=== PATIENT | male | born 1955 | race Caucasian/White ===

== ENCOUNTER 2018-11-23 16:36 | Inpatient (IN) ==
[2018-11-23] MEDS ORDERED: MEROPENEM 1,000 MG in SODIUM CHLORIDE 0.9% 100 ML IV ONE ×2 (17:14→18:00)
[2018-11-23] MEDS ORDERED: ONDANSETRON 4 MG/2 ML VIAL IV STA (17:28)
[2018-11-23] MEDS ORDERED: HYDROmorphone 2 MG/1 ML VIAL IV ONE (17:28)
[2018-11-23 17:39] LABS: Apearance,Urine CLEAR (Clear); Bacteria,Urine Occasional /HPF (Few); Bilirubin,Urine Negative (Negative); Blood, Urine Negative (Negative); Glucose,Urine (UA) Negative (Negative); Ketones,Urine Negative (Negative); Nitrite,Urine Negative (Negative); Protein,Urine Negative; RBC,Urine <1 /HPF (0-4); Urine Color Straw (Yellow); Urine Specific Gravity 1.009 (1.001-1.035); Urine Urobilinogen < 2.0 EU/DL (0.2-1.0); WBC,Urine 2 /HPF (0-6)
[2018-11-23 17:54] LABS: Basophils % 1.5 % (0.0-0.8); Eosinophils # 0.1 10*3/uL (0.0-0.87); Eosinophils % 3.1 % (0.00-10.9); Hemoglobin 10.5 GM/DL (14.0-18.0); Immature Granulocytes % 0.4 %; Immature Granulocytes Absolute 0.01 #; Lymphocytes # 1.1 10*3/uL (1.4-4.0); Lymphocytes % 40.9 % (21.2-54.2); Mean Corpuscular HGB Conc 33.9 GM/DL (32-36); Mean Corpuscular Volume 92.8 FL (87-102); Mean Platelet Volume 9.2 FL (9.6-12.0); Monocytes % 25.5 % (1.7-12.7); Neutrophils % 28.6 % (38.7-73.9); Platelet Count 233 T/CUMM (130-400); Red Blood Count 3.34 MC/CUMM (3.8-5.5); White Blood Count 2.6 T/CUMM (4-12)
[2018-11-23] MEDS ORDERED: MEROPENEM 1,000 MG VIAL IV ONE (17:58)
[2018-11-23 18:01] LABS: Bilirubin,Total 0.4 MG/DL (0.2-1.0); Osmolality,Calculated 262.5 MOS/KG (273-304); Total Protein 6.7 G/DL (6.4-8.3)
[2018-11-23 18:04] LABS: INR 0.9; PT Patient Result 10.2 SECS (9.6-12.2)
[2018-11-23 18:17] LABS: Eosinophils 4 % (0-10); Lymphocytes 44 % (20-55); Platelet Estimate Adequate; Segmented Neutrophils 32 % (50-85); Total Cells Counted 100
[2018-11-23 18:18] LABS: Atypical Lymphocytes 1+; Microcytosis Slight; Polychromasia Few
[2018-11-23] MEDS ORDERED: chlorproMAZINE 25 MG TABLET PO PRN (18:38)
[2018-11-23] MEDS ORDERED: chlorproMAZINE INJ 25 MG in SODIUM CHLORIDE 0.9% 100 ML IV PRN (18:38)
[2018-11-23] MEDS ORDERED: LOPERAMIDE 2 MG CAPSULE PO PRN ×2 (18:38)
[2018-11-23] MEDS ORDERED: MYLANTA/LIDO VISC 2:1 300 ML BOTTLE SWISH/SWAL PRN (18:38)
[2018-11-23] MEDS ORDERED: chlorproMAZINE INJ 50 MG in SODIUM CHLORIDE 0.9% 100 ML IV PRN (18:38)
[2018-11-23] MEDS ORDERED: MYLANTA/LIDO VISC 2:1 300 ML BOTTLE SWISH/SPIT PRN (18:38)
[2018-11-23] MEDS ORDERED: LACTULOSE 20 GM/30 ML UDCUP PO PRN (18:38)
[2018-11-23] MEDS ORDERED: BENZTROPINE 2 MG/2 ML AMP IV PRN (18:38)
[2018-11-23] MEDS ORDERED: MAGNESIUM HYDROXIDE SUSP 30 ML UDCUP PO PRN (18:38)
[2018-11-23] MEDS: LISINOPRIL/HCTZ 20-25 MG TABLET PO SCH (20:41)
[2018-11-23] MEDS: TEMAZEPAM 7.5 MG CAPSULE PO PRN (20:42)
[2018-11-23] MEDS: NEBIVOLOL 10 MG TABLET PO SCH (20:42)
[2018-11-23] MEDS: ENOXAPARIN 40 MG/0.4 ML SYRINGE SUBCUT SCH (20:45)
[2018-11-23] MEDS: SODIUM CHLORIDE 0.9% 1,000 ML IV SCH (20:58)
[2018-11-23] MEDS: traMADol 50 MG TABLET PO PRN (22:24)
[2018-11-23] MEDS: LORazepam 1 MG TABLET PO SCH (22:24)
[2018-11-23] MEDS: FILGRASTIM-SNDZ 300 MCG/0.5 ML SYRINGE SUBCUT SCH (22:28)
[2018-11-24] MEDS: ALPRAZolam 0.25 MG TABLET PO PRN ×2 (01:06→15:45)
[2018-11-24] MEDS: ONDANSETRON 4 MG/2 ML VIAL IV PRN ×2 (01:10→08:50)
[2018-11-24] MEDS: MEROPENEM 1,000 MG in SODIUM CHLORIDE 0.9% 100 ML IV SCH ×3 (01:14→17:15)
[2018-11-24] MEDS ORDERED: HYDROmorphone 2 MG/1 ML VIAL IV PRN (03:13)
[2018-11-24 03:57] LABS: Basophils % 1.4 % (0.0-0.8); Eosinophils # 0.2 10*3/uL (0.0-0.87); Eosinophils % 5.7 % (0.00-10.9); Hematocrit 31.4 VOL% (42.0-52.0); Hemoglobin 10.3 GM/DL (14.0-18.0); Lymphocytes # 1.4 10*3/uL (1.4-4.0); Lymphocytes % 48.2 % (21.2-54.2); Mean Corpuscular HGB Conc 32.8 GM/DL (32-36); Mean Platelet Volume 9.3 FL (9.6-12.0); Monocytes % 23.8 % (1.7-12.7); Neutrophils % 20.9 % (38.7-73.9); Platelet Count 224 T/CUMM (130-400); Red Blood Count 3.34 MC/CUMM (3.8-5.5); White Blood Count 2.8 T/CUMM (4-12)
[2018-11-24 04:20] LABS: Albumin 2.7 G/DL (3.4-5.0); Bilirubin,Total 0.4 MG/DL (0.2-1.0); Calcium 8.8 MG/DL (8.5-10.1); Total Protein 6.2 G/DL (6.4-8.3)
[2018-11-24 04:21] LABS: Eosinophils 1 % (0-10); Lymphocytes 62 % (20-55); Segmented Neutrophils 25 % (50-85); Total Cells Counted 100
[2018-11-24 04:22] LABS: Basophilic Stippling Slight; Polychromasia Few
[2018-11-24 04:23] LABS: Platelet Estimate Normal
[2018-11-24] MEDS: HYDROmorphone 2 MG/1 ML VIAL IV PRN ×5 (05:58→22:02)
[2018-11-24] MEDS: PANTOPRAZOLE 40 MG TABLET PO SCH (08:38)
[2018-11-24] MEDS: FILGRASTIM-SNDZ 300 MCG/0.5 ML SYRINGE SUBCUT SCH (08:38)
[2018-11-24] MEDS: LORazepam 1 MG TABLET PO SCH ×2 (08:38→20:31)
[2018-11-24] MEDS: guaiFENesin 200 MG/10 ML UDCUP PO PRN (08:58)
[2018-11-24] MEDS: SODIUM CHLORIDE 0.9% 1,000 ML IV SCH (10:12)
[2018-11-24] MEDS: DOCUSATE SODIUM 100 MG CAPSULE PO SCH ×2 (10:13→20:38)
[2018-11-24 13:20] LABS: Apearance,Urine CLEAR (Clear); Bilirubin,Urine Negative (Negative); Blood, Urine Negative (Negative); Glucose,Urine (UA) Negative (Negative); Ketones,Urine Negative (Negative); Mucus,Urine Occasional /LPF (Occasional); Nitrite,Urine Negative (Negative); Protein,Urine Negative; RBC,Urine 1 /HPF (0-4); Urine Color Yellow (Yellow); Urine Specific Gravity 1.013 (1.001-1.035); Urine Urobilinogen < 2.0 EU/DL (0.2-1.0); WBC,Urine 1 /HPF (0-6)
[2018-11-24] MEDS ORDERED: MAGNESIUM SULF RIDER 2 GM in PREMIX 1 EACH IV PRN (13:26)
[2018-11-24] MEDS: ACETAMINOPHEN 325 MG TABLET PO PRN (14:14)
[2018-11-24] MEDS: traMADol 50 MG TABLET PO PRN (17:19)
[2018-11-24] MEDS: PROMETHAZINE INJ 25 MG in SODIUM CHLORIDE 0.9% 50 ML IV PRN (17:56)
[2018-11-24] MEDS: diphenhydrAMINE CAP 25 MG CAPSULE PO PRN (18:02)
[2018-11-24] MEDS: LISINOPRIL/HCTZ 20-25 MG TABLET PO SCH (20:31)
[2018-11-24] MEDS: oxyCODONE ER 10 MG TABLET PO PRN (20:32)
[2018-11-24] MEDS: TEMAZEPAM 7.5 MG CAPSULE PO PRN (20:32)
[2018-11-24] MEDS: ENOXAPARIN 40 MG/0.4 ML SYRINGE SUBCUT SCH (20:34)
[2018-11-24] MEDS: NEBIVOLOL 10 MG TABLET PO SCH (20:34)
[2018-11-24] MEDS: ALUMINUM/MAGNES/SIMETH MAX STR 30 ML UDCUP PO PRN (20:41)
[2018-11-25] MEDS: MEROPENEM 1,000 MG in SODIUM CHLORIDE 0.9% 100 ML IV SCH ×3 (01:59→17:10)
[2018-11-25] MEDS: HYDROmorphone 2 MG/1 ML VIAL IV PRN ×7 (01:59→23:46)
[2018-11-25] MEDS: SODIUM CHLORIDE 0.9% 1,000 ML IV SCH ×2 (02:00→19:51)
[2018-11-25] MEDS: ONDANSETRON 4 MG/2 ML VIAL IV PRN (02:07)
[2018-11-25 04:20] LABS: Basophils # 0.1 10*3/uL (0.0-0.2); Basophils % 1.9 % (0.0-0.8); Eosinophils # 0.2 10*3/uL (0.0-0.87); Eosinophils % 4.2 % (0.00-10.9); Hematocrit 32.3 VOL% (42.0-52.0); Hemoglobin 10.8 GM/DL (14.0-18.0); Immature Granulocytes % 5.7 %; Immature Granulocytes Absolute 0.24 #; Lymphocytes # 1.2 10*3/uL (1.4-4.0); Lymphocytes % 28.1 % (21.2-54.2); Mean Corpuscular HGB Conc 33.4 GM/DL (32-36); Mean Corpuscular Volume 94.2 FL (87-102); Mean Platelet Volume 9.4 FL (9.6-12.0); Monocytes % 25.9 % (1.7-12.7); Neutrophils % 34.2 % (38.7-73.9); Platelet Count 214 T/CUMM (130-400); Red Blood Count 3.43 MC/CUMM (3.8-5.5); Red Cell Distribution Width 12.3 % (9.3-17.3); White Blood Count 4.2 T/CUMM (4-12)
[2018-11-25 04:38] LABS: Albumin 2.7 G/DL (3.4-5.0); Bilirubin,Total 0.5 MG/DL (0.2-1.0); Calcium 8.5 MG/DL (8.5-10.1); Osmolality,Calculated 259.7 MOS/KG (273-304); Total Protein 6.5 G/DL (6.4-8.3)
[2018-11-25 05:06] LABS: Band Neutrophils 14 % (0-10); Eosinophils 3 % (0-10); Lymphocytes 30 % (20-55); Myelocytes 2 %; Segmented Neutrophils 18 % (50-85); Total Cells Counted 100
[2018-11-25 05:07] LABS: Anisocytosis 1+; Platelet Estimate Adequate; Tear Drop Cells Few
[2018-11-25] MEDS: diphenhydrAMINE CAP 25 MG CAPSULE PO PRN (06:44)
[2018-11-25] MEDS: ALPRAZolam 0.25 MG TABLET PO PRN ×2 (06:47→23:44)
[2018-11-25] MEDS: LORazepam 1 MG TABLET PO SCH ×2 (09:06→20:20)
[2018-11-25] MEDS: guaiFENesin 200 MG/10 ML UDCUP PO PRN (09:06)
[2018-11-25] MEDS: LORazepam 2 MG/1 ML VIAL IV PRN ×2 (09:06→21:00)
[2018-11-25] MEDS: PANTOPRAZOLE 40 MG TABLET PO SCH (09:06)
[2018-11-25] MEDS: DOCUSATE SODIUM 100 MG CAPSULE PO SCH ×2 (09:06→20:20)
[2018-11-25 11:29] LABS: Apearance,Urine CLEAR (Clear); Bacteria,Urine Occasional /HPF (Few); Bilirubin,Urine Negative (Negative); Blood, Urine Negative (Negative); Glucose,Urine (UA) Negative (Negative); Ketones,Urine Negative (Negative); Mucus,Urine Occasional /LPF (Occasional); Nitrite,Urine Negative (Negative); Protein,Urine Negative; RBC,Urine 1 /HPF (0-4); Sperm,Urine Occasional /HPF (Negative); Urine Color Yellow (Yellow); Urine Urobilinogen < 2.0 EU/DL (0.2-1.0); WBC,Urine 1 /HPF (0-6)
[2018-11-25] MEDS: FILGRASTIM-SNDZ 300 MCG/0.5 ML SYRINGE SUBCUT SCH (11:41)
[2018-11-25] MEDS: TAMSULOSIN 0.4 MG CAPSULE PO SCH ×2 (11:41→20:20)
[2018-11-25] MEDS ORDERED: MAGNESIUM SULF RIDER 4 GM in PREMIX 1 EACH IV PRN (11:55)
[2018-11-25] MEDS: PROMETHAZINE INJ 25 MG in SODIUM CHLORIDE 0.9% 50 ML IV PRN ×2 (12:24→19:44)
[2018-11-25] MEDS: ALUMINUM/MAGNES/SIMETH MAX STR 30 ML UDCUP PO PRN (12:24)
[2018-11-25] MEDS: ACETAMINOPHEN 325 MG TABLET PO PRN (17:07)
[2018-11-25] MEDS: LISINOPRIL/HCTZ 20-25 MG TABLET PO SCH (20:20)
[2018-11-25] MEDS: NEBIVOLOL 10 MG TABLET PO SCH (20:20)
[2018-11-25] MEDS: TEMAZEPAM 7.5 MG CAPSULE PO PRN (20:21)
[2018-11-25] MEDS: ENOXAPARIN 40 MG/0.4 ML SYRINGE SUBCUT SCH (20:25)
[2018-11-25] MEDS: oxyCODONE ER 10 MG TABLET PO PRN (23:44)
[2018-11-26] MEDS: MEROPENEM 1,000 MG in SODIUM CHLORIDE 0.9% 100 ML IV SCH ×3 (01:10→16:14)
[2018-11-26 05:15] LABS: Basophils # 0.1 10*3/uL (0.0-0.2); Eosinophils # 0.1 10*3/uL (0.0-0.87); Eosinophils % 1.5 % (0.00-10.9); Hematocrit 29.3 VOL% (42.0-52.0); Hemoglobin 9.5 GM/DL (14.0-18.0); Immature Granulocytes % 6.1 %; Immature Granulocytes Absolute 0.53 #; Lymphocytes # 1.3 10*3/uL (1.4-4.0); Lymphocytes % 15.3 % (21.2-54.2); Mean Corpuscular HGB Conc 32.4 GM/DL (32-36); Mean Platelet Volume 9.8 FL (9.6-12.0); Monocytes % 16.2 % (1.7-12.7); NRBC # 0.02 10*3/uL; Neutrophils % 59.9 % (38.7-73.9); Platelet Count 164 T/CUMM (130-400); Red Blood Count 3.15 MC/CUMM (3.8-5.5); Red Cell Distribution Width 12.2 % (9.3-17.3); White Blood Count 8.7 T/CUMM (4-12)
[2018-11-26 05:38] LABS: Albumin 2.4 G/DL (3.4-5.0); Bilirubin,Total 0.4 MG/DL (0.2-1.0); Calcium 7.7 MG/DL (8.5-10.1); Osmolality,Calculated 257.9 MOS/KG (273-304); Total Protein 5.7 G/DL (6.4-8.3)
[2018-11-26 05:43] LABS: Band Neutrophils 6 % (0-10); Eosinophils 2 % (0-10); Hypochromasia 1+; Lymphocytes 25 % (20-55); Nucleated Red Blood Cells 1 (0-5); Platelet Estimate Adequate; Segmented Neutrophils 57 % (50-85); Total Cells Counted 100
[2018-11-26] MEDS: ONDANSETRON 4 MG/2 ML VIAL IV PRN (07:53)
[2018-11-26] MEDS: HYDROmorphone 2 MG/1 ML VIAL IV PRN ×2 (07:59→11:38)
[2018-11-26] MEDS: PANTOPRAZOLE 40 MG TABLET PO SCH (09:18)
[2018-11-26] MEDS: DOCUSATE SODIUM 100 MG CAPSULE PO SCH ×2 (09:18→21:13)
[2018-11-26] MEDS: LORazepam 1 MG TABLET PO SCH (09:18)
[2018-11-26] MEDS: TAMSULOSIN 0.4 MG CAPSULE PO SCH ×2 (09:18→21:14)
[2018-11-26] MEDS: FILGRASTIM-SNDZ 300 MCG/0.5 ML SYRINGE SUBCUT SCH (09:19)
[2018-11-26] MEDS: SODIUM CHLORIDE 0.9% 1,000 ML IV SCH ×2 (11:39→20:03)
[2018-11-26] MEDS: LORazepam 2 MG/1 ML VIAL IV PRN (13:58)
[2018-11-26] MEDS: diphenhydrAMINE CAP 25 MG CAPSULE PO PRN (13:58)
[2018-11-26] MEDS: oxyCODONE ER 10 MG TABLET PO PRN (19:53)
[2018-11-26] MEDS ORDERED: ZALEPLON 5 MG CAPSULE PO SCH (21:00)
[2018-11-26] MEDS ORDERED: traZODone 50 MG TABLET PO SCH (21:00)
[2018-11-26] MEDS: NEBIVOLOL 10 MG TABLET PO SCH (21:14)
[2018-11-26] MEDS: ENOXAPARIN 40 MG/0.4 ML SYRINGE SUBCUT SCH (21:14)
[2018-11-26] MEDS: LISINOPRIL/HCTZ 20-25 MG TABLET PO SCH (21:17)
[2018-11-27] MEDS: MEROPENEM 1,000 MG in SODIUM CHLORIDE 0.9% 100 ML IV SCH ×2 (01:55→08:34)
[2018-11-27 04:08] LABS: Calcium 7.9 MG/DL (8.5-10.1); Osmolality,Calculated 256.8 MOS/KG (273-304)
[2018-11-27] MEDS: TAMSULOSIN 0.4 MG CAPSULE PO SCH (08:32)
[2018-11-27] MEDS: ONDANSETRON 4 MG/2 ML VIAL IV PRN (08:32)
[2018-11-27] MEDS: PANTOPRAZOLE 40 MG TABLET PO SCH (08:32)
[2018-11-27] MEDS: DOCUSATE SODIUM 100 MG CAPSULE PO SCH (08:32)
[2018-11-27] MEDS ORDERED: CITALOPRAM 20 MG TABLET PO SCH (09:00)
[2018-11-27] MEDS: FILGRASTIM-SNDZ 300 MCG/0.5 ML SYRINGE SUBCUT SCH (09:13)
[2018-11-27] MEDS ORDERED: HEPARIN LOCK FLUSH 500 UNIT/5 ML SYRINGE IV ONE ×2 (11:14→11:40)
[2018-11-27] MEDS: oxyCODONE ER 10 MG TABLET PO PRN (11:24)
[2018-11-27 11:42] VITALS: BP 137/69
== END 2018-11-27 12:10 | disposition home or self-care (01) | DRG 809 ==
LOC: N.ED 16:36 → N.EDINP 18:38 → SUATTDRO 18:38 → N.4E 19:20
PROVIDERS: ADMIT Internal Medicine; ATTEND Internal Medicine

== ENCOUNTER 2020-02-18 11:21 | Inpatient (IN) ==
[2020-02-18 12:06] LABS: Basophils % 0.5 % (0.0-0.8); Eosinophils # 0.2 10*3/uL (0.0-0.87); Eosinophils % 1.9 % (0.00-10.9); Hematocrit 28.8 VOL% (42.0-52.0); Hemoglobin 9.8 GM/DL (14.0-18.0); Immature Granulocytes % 0.7 %; Immature Granulocytes Absolute 0.06 #; Lymphocytes # 1.1 10*3/uL (1.4-4.0); Lymphocytes % 13.2 % (21.2-54.2); Mean Corpuscular Volume 88.6 FL (87-102); Mean Platelet Volume 9.8 FL (9.6-12.0); Monocytes % 11.9 % (1.7-12.7); Neutrophils % 71.8 % (38.7-73.9); Platelet Count 189 T/CUMM (130-400); Red Blood Count 3.25 MC/CUMM (3.8-5.5); Red Cell Distribution Width 14.6 % (9.3-17.3); White Blood Count 8.5 T/CUMM (4-12)
[2020-02-18 12:29] LABS: Band Neutrophils 5 % (0-10); Eosinophils 1 % (0-10); Lymphocytes 11 % (20-55); Segmented Neutrophils 76 % (50-85); Total Cells Counted 100
[2020-02-18 12:30] LABS: Platelet Estimate Normal
[2020-02-18 12:31] LABS: Anisocytosis 1+
[2020-02-18 12:32] LABS: Macrocytosis 1+; Ovalocytes Few; Polychromasia Slight
[2020-02-18 13:22] LABS: INR 1.3; Partial Thromboplastin Time 32.2 SECS (23.9-33.8)
[2020-02-18] MEDS ORDERED: SODIUM CHLORIDE 0.9% 1,000 ML IV STA (13:30)
[2020-02-18 14:28] LABS: Albumin 2.4 G/DL (3.4-5.0); Bilirubin,Total 1.2 MG/DL (0.2-1.0); Calcium 8.2 MG/DL (8.5-10.1); Ferritin 829.1 ng/ml (26-388); Total Protein 5.5 G/DL (6.4-8.3)
[2020-02-18] MEDS ORDERED: DEXAMETHASONE 10 MG/1 ML VIAL IV STA (15:39)
[2020-02-18] MEDS ORDERED: ALBUTEROL 2.5 MG/3 ML NEB RESP TX PRN (16:13)
[2020-02-18] MEDS ORDERED: DOCUSATE SODIUM 100 MG CAPSULE PO PRN (16:24)
[2020-02-18] MEDS ORDERED: LACTULOSE 20 GM/30 ML UDCUP PO PRN (16:24)
[2020-02-18] MEDS ORDERED: hydrALAZINE 20 MG/1 ML VIAL IV PRN (16:24)
[2020-02-18] MEDS ORDERED: DEXTROSE 50% 25 GM/50 ML VIAL IV PRN (16:24)
[2020-02-18] MEDS ORDERED: ONDANSETRON 4 MG/2 ML VIAL IV PRN (16:24)
[2020-02-18] MEDS ORDERED: BISACODYL 5 MG TABLET PO PRN (16:24)
[2020-02-18] MEDS ORDERED: diphenhydrAMINE CAP 25 MG CAPSULE PO PRN (16:24)
[2020-02-18] MEDS ORDERED: PROMETHAZINE 25 MG TABLET PO PRN (16:24)
[2020-02-18] MEDS ORDERED: GLUCAGON 1 MG VIAL IM PRN (16:24)
[2020-02-18] MEDS ORDERED: ALUMINUM/MAGNES/SIMETH MAX STR 30 ML UDCUP PO PRN (16:24)
[2020-02-18] MEDS ORDERED: SIMETHICONE CHEW 125 MG TABLET PO PRN (16:24)
[2020-02-18] MEDS ORDERED: ZALEPLON 5 MG CAPSULE PO PRN (16:24)
[2020-02-18] MEDS ORDERED: LEVOFLOXACIN INJ 750 MG in PREMIX 1 EACH IV SCH (16:30)
[2020-02-18] MEDS ORDERED: predniSONE 20 MG TABLET PO STA (17:27)
[2020-02-18] MEDS ORDERED: MAGNESIUM SULF RIDER 4 GM in PREMIX 1 EACH IV PRN (17:29)
[2020-02-18 17:36] LABS: ABG Base Excess 7.1 MMOL/L (-2.5-2.5); ABG HCO3 30.9 MMOL/L (20-26); ABG Oxygen Saturation 97.4 % (95-100); ABG PCO2 51.6 MM HG (35-48); ABG PH 7.412 (7.35-7.45); ABG PO2 97.7 MM HG (80-95); ABG TCO2 30.2 MMOL/L (23-27)
[2020-02-18] MEDS ORDERED: PIPERACILLIN/TAZOBACTAM 3,375 MG in SODIUM CHLORIDE 0.9% 100 ML IV SCH (18:00)
[2020-02-18] MEDS: methylPREDNISolone SOD SUC 40 MG/1 ML VIAL IV SCH (18:02)
[2020-02-18] MEDS: cefTRIAXone 1,000 MG VIAL IM SCH (18:11)
[2020-02-18] MEDS: LORazepam 1 MG TABLET PO PRN (18:37)
[2020-02-18] MEDS: TAMSULOSIN 0.4 MG CAPSULE PO SCH (20:26)
[2020-02-18] MEDS ORDERED: MOMETASONE 0.1% TOP SCH (21:00)
[2020-02-18] MEDS: AZITHROMYCIN INJ 500 MG in SODIUM CHLORIDE 0.9% 250 ML IV SCH (22:30)
[2020-02-19] MEDS: methylPREDNISolone SOD SUC 40 MG/1 ML VIAL IV SCH ×3 (01:56→17:55)
[2020-02-19 06:00] LABS: Basophils % 0.3 % (0.0-0.8); Hemoglobin 9.9 GM/DL (14.0-18.0); Immature Granulocytes % 0.8 %; Immature Granulocytes Absolute 0.03 #; Lymphocytes # 0.4 10*3/uL (1.4-4.0); Lymphocytes % 10.7 % (21.2-54.2); Mean Corpuscular Volume 89.8 FL (87-102); Mean Platelet Volume 10.1 FL (9.6-12.0); Monocytes % 1.5 % (1.7-12.7); Neutrophils % 86.7 % (38.7-73.9); Platelet Count 190 T/CUMM (130-400); Red Blood Count 3.34 MC/CUMM (3.8-5.5); Red Cell Distribution Width 14.4 % (9.3-17.3); White Blood Count 3.9 T/CUMM (4-12)
[2020-02-19] MEDS: cefTRIAXone 1,000 MG VIAL IM SCH (06:23)
[2020-02-19] MEDS ORDERED: cefTRIAXone 1,000 MG VIAL IV SCH (06:30)
[2020-02-19 06:39] LABS: Albumin 2.1 G/DL (3.4-5.0); Bilirubin,Total 1.4 MG/DL (0.2-1.0); Calcium 8.3 MG/DL (8.5-10.1); Osmolality,Calculated 278.7 MOS/KG (273-304); Total Protein 5.8 G/DL (6.4-8.3)
[2020-02-19] MEDS: NEBIVOLOL 10 MG TABLET PO SCH (08:44)
[2020-02-19] MEDS: CITALOPRAM 40 MG TABLET PO SCH (08:44)
[2020-02-19] MEDS: fentaNYL 50 MCG/HR PATCH TRANSDERM SCH (08:45)
[2020-02-19] MEDS: PANTOPRAZOLE 40 MG TABLET PO SCH (08:45)
[2020-02-19] MEDS: TAMSULOSIN 0.4 MG CAPSULE PO SCH ×2 (08:45→20:16)
[2020-02-19] MEDS: POTASSIUM CHLORIDE RIDER 10 MEQ in PREMIX 1 EACH IV PRN ×4 (08:55→13:05)
[2020-02-19] MEDS ORDERED: predniSONE 20 MG TABLET PO SCH (09:00)
[2020-02-19] MEDS ORDERED: MORPHINE 30 MG PO PRN (09:01)
[2020-02-19] MEDS: MORPHINE ER 15 MG TABLET PO SCH ×2 (10:01→20:30)
[2020-02-19] MEDS: LORazepam 1 MG TABLET PO PRN ×2 (10:02→19:47)
[2020-02-19] MEDS ORDERED: VANCOMYCIN INJ 1,000 MG in SODIUM CHLORIDE 0.9% 250 ML IV SCH (14:00)
[2020-02-19] MEDS ORDERED: FUROSEMIDE 40 MG/4 ML VIAL IV ONE (14:45)
[2020-02-19] MEDS: VANCOMYCIN INJ 1,250 MG in SODIUM CHLORIDE 0.9% 250 ML IV SCH (16:11)
[2020-02-19] MEDS: AZITHROMYCIN INJ 500 MG in SODIUM CHLORIDE 0.9% 250 ML IV SCH (20:17)
[2020-02-20] MEDS: methylPREDNISolone SOD SUC 40 MG/1 ML VIAL IV SCH ×3 (02:08→17:16)
[2020-02-20] MEDS: VANCOMYCIN INJ 1,250 MG in SODIUM CHLORIDE 0.9% 250 ML IV SCH ×2 (02:10→17:23)
[2020-02-20 06:09] LABS: Albumin 2.6 G/DL (3.4-5.0); Bilirubin,Total 0.8 MG/DL (0.2-1.0); Calcium 8.9 MG/DL (8.5-10.1); Osmolality,Calculated 275.5 MOS/KG (273-304); Total Protein 6.7 G/DL (6.4-8.3)
[2020-02-20] MEDS: ACETAMINOPHEN 325 MG TABLET PO PRN (06:28)
[2020-02-20] MEDS: LORazepam 1 MG TABLET PO PRN ×2 (06:32→16:09)
[2020-02-20 07:59] LABS: Basophils % 0.1 % (0.0-0.8); Hematocrit 30.1 VOL% (42.0-52.0); Immature Granulocytes % 0.7 %; Lymphocytes # 0.6 10*3/uL (1.4-4.0); Lymphocytes % 4.1 % (21.2-54.2); Mean Corpuscular HGB Conc 33.2 GM/DL (32-36); Mean Corpuscular Volume 89.6 FL (87-102); Mean Platelet Volume 9.3 FL (9.6-12.0); Monocytes % 2.2 % (1.7-12.7); Neutrophils % 92.9 % (38.7-73.9); Platelet Count 168 T/CUMM (130-400); Red Blood Count 3.36 MC/CUMM (3.8-5.5); Red Cell Distribution Width 14.7 % (9.3-17.3)
[2020-02-20 08:18] LABS: Hypochromasia 1+; Lymphocytes 6 % (20-55); Microcytosis 1+; Ovalocytes Slight; Platelet Estimate Adequate; Segmented Neutrophils 89 % (50-85); Total Cells Counted 100
[2020-02-20] MEDS: MORPHINE ER 15 MG TABLET PO SCH ×2 (08:36→21:36)
[2020-02-20] MEDS: CITALOPRAM 40 MG TABLET PO SCH (08:36)
[2020-02-20] MEDS: PANTOPRAZOLE 40 MG TABLET PO SCH (08:36)
[2020-02-20] MEDS: TAMSULOSIN 0.4 MG CAPSULE PO SCH ×2 (08:36→21:37)
[2020-02-20] MEDS: NEBIVOLOL 10 MG TABLET PO SCH (08:36)
[2020-02-20] MEDS: cefTRIAXone 1,000 MG VIAL IV SCH (08:39)
[2020-02-20] MEDS: POTASSIUM CHLORIDE RIDER 10 MEQ in PREMIX 1 EACH IV PRN ×2 (08:42→13:05)
[2020-02-20 11:14] LABS: ABG HCO3 32.7 MMOL/L (20-26); ABG Oxygen Saturation 92.7 % (95-100); ABG PCO2 49.5 MM HG (35-48); ABG PO2 68.6 MM HG (80-95); ABG TCO2 31.3 MMOL/L (23-27)
[2020-02-20] MEDS ORDERED: ALTEPLASE 2 MG VIAL INTRACATH ONE (12:30)
[2020-02-20] MEDS: AZITHROMYCIN INJ 500 MG in SODIUM CHLORIDE 0.9% 250 ML IV SCH (21:38)
[2020-02-21] MEDS: methylPREDNISolone SOD SUC 40 MG/1 ML VIAL IV SCH ×3 (03:41→20:55)
[2020-02-21] MEDS: VANCOMYCIN INJ 1,250 MG in SODIUM CHLORIDE 0.9% 250 ML IV SCH ×2 (03:41→15:59)
[2020-02-21] MEDS: LORazepam 1 MG TABLET PO PRN ×2 (03:50→16:00)
[2020-02-21 05:30] LABS: Basophils % 0.1 % (0.0-0.8); Hematocrit 29.1 VOL% (42.0-52.0); Hemoglobin 9.6 GM/DL (14.0-18.0); Immature Granulocytes % 1.2 %; Immature Granulocytes Absolute 0.14 #; Lymphocytes # 0.5 10*3/uL (1.4-4.0); Lymphocytes % 4.1 % (21.2-54.2); Mean Corpuscular Volume 90.7 FL (87-102); Mean Platelet Volume 9.5 FL (9.6-12.0); Monocytes % 4.2 % (1.7-12.7); Neutrophils % 90.4 % (38.7-73.9); Platelet Count 152 T/CUMM (130-400); Red Blood Count 3.21 MC/CUMM (3.8-5.5); White Blood Count 11.8 T/CUMM (4-12)
[2020-02-21 05:59] LABS: Hypochromasia Slight; Lymphocytes 3 % (20-55); Platelet Estimate Normal; Segmented Neutrophils 96 % (50-85); Total Cells Counted 100
[2020-02-21 06:17] LABS: Albumin 2.2 G/DL (3.4-5.0); Bilirubin,Total 0.5 MG/DL (0.2-1.0); Calcium 8.4 MG/DL (8.5-10.1); Osmolality,Calculated 279.3 MOS/KG (273-304); Total Protein 5.6 G/DL (6.4-8.3)
[2020-02-21] MEDS ORDERED: PROMETHAZINE 25 MG/1 ML VIAL IM ONE (07:30)
[2020-02-21] MEDS ORDERED: MEPERIDINE 50 MG/1 ML VIAL IM ONE (07:30)
[2020-02-21] MEDS ORDERED: LIDOCAINE 2% 20 ML VIAL RESP TX ONE (08:00)
[2020-02-21] MEDS ORDERED: LIDOCAINE 1% 20 ML VIAL MISC INJ ONE (08:00)
[2020-02-21] MEDS ORDERED: MIDAZOLAM 2 MG/2 ML VIAL IV ONE (08:00)
[2020-02-21] MEDS ORDERED: LIDOCAINE 2% VISCOUS 100 ML BOTTLE SWISH/SPIT ONE (08:00)
[2020-02-21] MEDS: NEBIVOLOL 10 MG TABLET PO SCH (11:18)
[2020-02-21] MEDS: MORPHINE ER 15 MG TABLET PO SCH ×2 (11:19→22:03)
[2020-02-21] MEDS: PANTOPRAZOLE 40 MG TABLET PO SCH (11:20)
[2020-02-21] MEDS: CITALOPRAM 40 MG TABLET PO SCH (11:20)
[2020-02-21] MEDS: TAMSULOSIN 0.4 MG CAPSULE PO SCH ×2 (11:21→20:55)
[2020-02-21] MEDS: cefTRIAXone 1,000 MG VIAL IV SCH (11:25)
[2020-02-21] MEDS: AZITHROMYCIN INJ 500 MG in SODIUM CHLORIDE 0.9% 250 ML IV SCH (20:55)
[2020-02-22] MEDS: LORazepam 1 MG TABLET PO PRN ×3 (03:21→18:15)
[2020-02-22] MEDS: methylPREDNISolone SOD SUC 40 MG/1 ML VIAL IV SCH ×3 (03:21→20:02)
[2020-02-22] MEDS: VANCOMYCIN INJ 1,250 MG in SODIUM CHLORIDE 0.9% 250 ML IV SCH ×2 (03:21→15:42)
[2020-02-22 04:10] LABS: Basophils % 0.1 % (0.0-0.8); Hematocrit 30.3 VOL% (42.0-52.0); Immature Granulocytes % 1.8 %; Lymphocytes # 0.4 10*3/uL (1.4-4.0); Lymphocytes % 3.8 % (21.2-54.2); Mean Corpuscular Volume 90.4 FL (87-102); Mean Platelet Volume 9.8 FL (9.6-12.0); Monocytes % 3.5 % (1.7-12.7); Neutrophils % 90.8 % (38.7-73.9); Platelet Count 123 T/CUMM (130-400); Red Blood Count 3.35 MC/CUMM (3.8-5.5); Red Cell Distribution Width 15.2 % (9.3-17.3); White Blood Count 11.2 T/CUMM (4-12)
[2020-02-22 04:29] LABS: Albumin 2.2 G/DL (3.4-5.0); Bilirubin,Total 0.5 MG/DL (0.2-1.0); Calcium 8.3 MG/DL (8.5-10.1); Osmolality,Calculated 279.4 MOS/KG (273-304); Total Protein 5.5 G/DL (6.4-8.3)
[2020-02-22 04:51] LABS: Hypochromasia 1+; Lymphocytes 7 % (20-55); Microcytosis 1+; Nucleated Red Blood Cells 1 (0-5); Ovalocytes Slight; Segmented Neutrophils 88 % (50-85); Total Cells Counted 100
[2020-02-22] MEDS: fentaNYL 50 MCG/HR PATCH TRANSDERM SCH (08:22)
[2020-02-22] MEDS: PANTOPRAZOLE 40 MG TABLET PO SCH (08:22)
[2020-02-22] MEDS: TAMSULOSIN 0.4 MG CAPSULE PO SCH ×2 (08:22→20:05)
[2020-02-22] MEDS: CITALOPRAM 40 MG TABLET PO SCH (08:22)
[2020-02-22] MEDS: NEBIVOLOL 10 MG TABLET PO SCH (08:22)
[2020-02-22] MEDS: MORPHINE ER 15 MG TABLET PO SCH ×3 (08:22→21:20)
[2020-02-22] MEDS: cefTRIAXone 1,000 MG VIAL IV SCH (08:23)
[2020-02-22] MEDS: FUROSEMIDE 40 MG/4 ML VIAL IV SCH (15:42)
[2020-02-22] MEDS: ACETAMINOPHEN 325 MG TABLET PO PRN (15:54)
[2020-02-22] MEDS: AZITHROMYCIN INJ 500 MG in SODIUM CHLORIDE 0.9% 250 ML IV SCH (20:04)
[2020-02-22] MEDS: guaiFENesin/DM ER 600-30 MG TABLET PO PRN (21:26)
[2020-02-23] MEDS: VANCOMYCIN INJ 1,250 MG in SODIUM CHLORIDE 0.9% 250 ML IV SCH ×2 (03:55→15:57)
[2020-02-23] MEDS: methylPREDNISolone SOD SUC 40 MG/1 ML VIAL IV SCH ×3 (04:05→20:40)
[2020-02-23 08:14] LABS: ABG Base Excess 14.4 MMOL/L (-2.5-2.5); ABG Oxygen Saturation 87.8 % (95-100); ABG PCO2 47.2 MM HG (35-48); ABG PH 7.528 (7.35-7.45); ABG PO2 55.1 MM HG (80-95); ABG TCO2 35.1 MMOL/L (23-27)
[2020-02-23] MEDS: NEBIVOLOL 10 MG TABLET PO SCH (08:51)
[2020-02-23] MEDS: CITALOPRAM 40 MG TABLET PO SCH (08:51)
[2020-02-23] MEDS: TAMSULOSIN 0.4 MG CAPSULE PO SCH ×2 (08:51→20:39)
[2020-02-23] MEDS: LORazepam 1 MG TABLET PO PRN ×2 (08:51→15:56)
[2020-02-23] MEDS: PANTOPRAZOLE 40 MG TABLET PO SCH (08:51)
[2020-02-23] MEDS: FUROSEMIDE 40 MG/4 ML VIAL IV SCH ×2 (08:52→15:57)
[2020-02-23] MEDS: MORPHINE ER 15 MG TABLET PO SCH ×2 (08:52→20:39)
[2020-02-23] MEDS: cefTRIAXone 1,000 MG VIAL IV SCH (10:01)
[2020-02-23] MEDS: AZITHROMYCIN INJ 500 MG in SODIUM CHLORIDE 0.9% 250 ML IV SCH (20:37)
[2020-02-24] MEDS: methylPREDNISolone SOD SUC 40 MG/1 ML VIAL IV SCH ×3 (03:28→21:18)
[2020-02-24] MEDS: VANCOMYCIN INJ 1,250 MG in SODIUM CHLORIDE 0.9% 250 ML IV SCH ×2 (03:31→16:20)
[2020-02-24] MEDS: cefTRIAXone 1,000 MG VIAL IV SCH (08:48)
[2020-02-24] MEDS: MORPHINE ER 15 MG TABLET PO SCH ×2 (08:48→21:18)
[2020-02-24] MEDS: FUROSEMIDE 40 MG/4 ML VIAL IV SCH ×2 (08:48→16:21)
[2020-02-24] MEDS: CITALOPRAM 40 MG TABLET PO SCH (08:49)
[2020-02-24] MEDS: TAMSULOSIN 0.4 MG CAPSULE PO SCH ×2 (08:49→21:18)
[2020-02-24] MEDS: PANTOPRAZOLE 40 MG TABLET PO SCH (08:49)
[2020-02-24] MEDS: NEBIVOLOL 10 MG TABLET PO SCH (08:49)
[2020-02-24] MEDS: LORazepam 1 MG TABLET PO PRN ×3 (08:49→21:18)
[2020-02-25] MEDS: VANCOMYCIN INJ 1,250 MG in SODIUM CHLORIDE 0.9% 250 ML IV SCH ×2 (03:27→15:35)
[2020-02-25] MEDS: methylPREDNISolone SOD SUC 40 MG/1 ML VIAL IV SCH ×2 (05:40→18:30)
[2020-02-25] MEDS: LORazepam 1 MG TABLET PO PRN (06:15)
[2020-02-25 06:41] LABS: Calcium 8.6 MG/DL (8.5-10.1); Osmolality,Calculated 266.5 MOS/KG (273-304)
[2020-02-25 07:47] LABS: Basophils % 0.1 % (0.0-0.8); Hematocrit 34.8 VOL% (42.0-52.0); Hemoglobin 11.7 GM/DL (14.0-18.0); Immature Granulocytes % 1.1 %; Immature Granulocytes Absolute 0.12 #; Lymphocytes # 0.6 10*3/uL (1.4-4.0); Lymphocytes % 5.6 % (21.2-54.2); Mean Corpuscular HGB Conc 33.6 GM/DL (32-36); Mean Corpuscular Volume 88.8 FL (87-102); Mean Platelet Volume 10.2 FL (9.6-12.0); Monocytes % 6.2 % (1.7-12.7); Platelet Count 170 T/CUMM (130-400); Red Blood Count 3.92 MC/CUMM (3.8-5.5)
[2020-02-25] MEDS: POTASSIUM CHLORIDE RIDER 10 MEQ in PREMIX 1 EACH IV PRN ×3 (09:01→12:25)
[2020-02-25] MEDS: MORPHINE ER 15 MG TABLET PO SCH ×2 (09:06→21:36)
[2020-02-25] MEDS: PANTOPRAZOLE 40 MG TABLET PO SCH (09:06)
[2020-02-25] MEDS: CITALOPRAM 40 MG TABLET PO SCH (09:07)
[2020-02-25] MEDS: TAMSULOSIN 0.4 MG CAPSULE PO SCH ×2 (09:07→21:36)
[2020-02-25] MEDS: NEBIVOLOL 10 MG TABLET PO SCH (09:07)
[2020-02-25] MEDS: FUROSEMIDE 40 MG/4 ML VIAL IV SCH (09:10)
[2020-02-25] MEDS: cefTRIAXone 1,000 MG VIAL IV SCH (09:16)
[2020-02-25 10:42] LABS: Osmolality,Calculated 269.4 MOS/KG (273-304)
[2020-02-25] MEDS: fentaNYL 50 MCG/HR PATCH TRANSDERM SCH (11:52)
[2020-02-25] MEDS: FLUCONAZOLE INJ 100 MG in IV BAG 1 EACH IV SCH (11:52)
[2020-02-25] MEDS: MORPHINE IR 15 MG TABLET PO PRN ×2 (14:29→18:37)
[2020-02-26] MEDS: VANCOMYCIN INJ 1,250 MG in SODIUM CHLORIDE 0.9% 250 ML IV SCH (03:43)
[2020-02-26] MEDS: MORPHINE IR 15 MG TABLET PO PRN ×2 (04:07→14:49)
[2020-02-26] MEDS: methylPREDNISolone SOD SUC 40 MG/1 ML VIAL IV SCH (05:28)
[2020-02-26 06:10] LABS: Basophils % 0.1 % (0.0-0.8); Eosinophils % 0.1 % (0.00-10.9); Hematocrit 35.5 VOL% (42.0-52.0); Hemoglobin 11.7 GM/DL (14.0-18.0); Immature Granulocytes % 1.1 %; Lymphocytes # 0.4 10*3/uL (1.4-4.0); Lymphocytes % 4.6 % (21.2-54.2); Mean Corpuscular Volume 91.7 FL (87-102); Mean Platelet Volume 10.1 FL (9.6-12.0); Monocytes % 7.7 % (1.7-12.7); Neutrophils % 86.4 % (38.7-73.9); Red Blood Count 3.87 MC/CUMM (3.8-5.5); Red Cell Distribution Width 14.9 % (9.3-17.3); White Blood Count 9.1 T/CUMM (4-12)
[2020-02-26 06:18] LABS: Platelet Count 131 T/CUMM (130-400)
[2020-02-26 06:33] LABS: Calcium 8.5 MG/DL (8.5-10.1); Osmolality,Calculated 274.1 MOS/KG (273-304)
[2020-02-26 06:50] LABS: Hypochromasia 1+; Lymphocytes 4 % (20-55); Platelet Estimate Normal; Segmented Neutrophils 92 % (50-85); Total Cells Counted 100
[2020-02-26] MEDS: CITALOPRAM 40 MG TABLET PO SCH (09:59)
[2020-02-26] MEDS: PANTOPRAZOLE 40 MG TABLET PO SCH (09:59)
[2020-02-26] MEDS: TAMSULOSIN 0.4 MG CAPSULE PO SCH ×2 (09:59→21:33)
[2020-02-26] MEDS: FUROSEMIDE 40 MG/4 ML VIAL IV SCH (09:59)
[2020-02-26] MEDS: NEBIVOLOL 10 MG TABLET PO SCH (09:59)
[2020-02-26] MEDS: MORPHINE ER 15 MG TABLET PO SCH ×2 (10:00→21:33)
[2020-02-26] MEDS: LORazepam 1 MG TABLET PO PRN (10:12)
[2020-02-26] MEDS: ENOXAPARIN 40 MG/0.4 ML SYRINGE SUBCUT SCH (10:13)
[2020-02-26] MEDS: predniSONE 20 MG TABLET PO SCH (10:13)
[2020-02-26] MEDS: cefTRIAXone 1,000 MG VIAL IV SCH (10:19)
[2020-02-26] MEDS: FLUCONAZOLE INJ 100 MG in IV BAG 1 EACH IV SCH (10:25)
[2020-02-27 06:21] LABS: Eosinophils # 0.1 10*3/uL (0.0-0.87); Eosinophils % 0.5 % (0.00-10.9); Hematocrit 34.5 VOL% (42.0-52.0); Hemoglobin 11.4 GM/DL (14.0-18.0); Immature Granulocytes % 0.9 %; Lymphocytes # 0.7 10*3/uL (1.4-4.0); Lymphocytes % 6.5 % (21.2-54.2); Mean Corpuscular Volume 90.1 FL (87-102); Monocytes % 7.5 % (1.7-12.7); Neutrophils % 84.6 % (38.7-73.9); Platelet Count 147 T/CUMM (130-400); Red Blood Count 3.83 MC/CUMM (3.8-5.5); Red Cell Distribution Width 14.9 % (9.3-17.3); White Blood Count 10.8 T/CUMM (4-12)
[2020-02-27 06:53] LABS: Calcium 8.6 MG/DL (8.5-10.1); Osmolality,Calculated 265.7 MOS/KG (273-304)
[2020-02-27] MEDS: NEBIVOLOL 10 MG TABLET PO SCH ×2 (09:26→09:43)
[2020-02-27] MEDS: CITALOPRAM 40 MG TABLET PO SCH (09:26)
[2020-02-27] MEDS: TAMSULOSIN 0.4 MG CAPSULE PO SCH ×2 (09:27→21:37)
[2020-02-27] MEDS: predniSONE 20 MG TABLET PO SCH (09:28)
[2020-02-27] MEDS: MORPHINE ER 15 MG TABLET PO SCH ×2 (09:29→22:27)
[2020-02-27] MEDS: PANTOPRAZOLE 40 MG TABLET PO SCH (09:29)
[2020-02-27] MEDS: FUROSEMIDE 40 MG/4 ML VIAL IV SCH (09:54)
[2020-02-27] MEDS: cefTRIAXone 1,000 MG VIAL IV SCH (09:59)
[2020-02-27] MEDS: ENOXAPARIN 40 MG/0.4 ML SYRINGE SUBCUT SCH (10:02)
[2020-02-27] MEDS: FLUCONAZOLE INJ 100 MG in IV BAG 1 EACH IV SCH (10:13)
[2020-02-27] MEDS: LORazepam 1 MG TABLET PO SCH ×3 (12:45→21:37)
[2020-02-27] MEDS: POTASSIUM CHLORIDE RIDER 10 MEQ in PREMIX 1 EACH IV PRN ×3 (20:31→23:02)
[2020-02-28] MEDS: POTASSIUM CHLORIDE RIDER 10 MEQ in PREMIX 1 EACH IV PRN (01:30)
[2020-02-28 06:18] LABS: Eosinophils # 0.1 10*3/uL (0.0-0.87); Eosinophils % 0.9 % (0.00-10.9); Hematocrit 33.3 VOL% (42.0-52.0); Hemoglobin 11.3 GM/DL (14.0-18.0); Immature Granulocytes Absolute 0.17 #; Lymphocytes # 0.7 10*3/uL (1.4-4.0); Lymphocytes % 8.1 % (21.2-54.2); Mean Corpuscular HGB Conc 33.9 GM/DL (32-36); Mean Platelet Volume 9.8 FL (9.6-12.0); Monocytes % 8.9 % (1.7-12.7); Neutrophils % 80.1 % (38.7-73.9); Platelet Count 141 T/CUMM (130-400); White Blood Count 8.5 T/CUMM (4-12)
[2020-02-28 06:26] LABS: Calcium 8.2 MG/DL (8.5-10.1); Osmolality,Calculated 269.2 MOS/KG (273-304)
[2020-02-28 07:51] LABS: Hypochromasia 1+; Microcytosis 1+; Ovalocytes Few; Platelet Estimate Normal
[2020-02-28] MEDS: FLUCONAZOLE 100 MG TABLET PO SCH (09:52)
[2020-02-28] MEDS: LORazepam 1 MG TABLET PO SCH ×3 (09:52→20:43)
[2020-02-28] MEDS: predniSONE 20 MG TABLET PO SCH (09:52)
[2020-02-28] MEDS: CITALOPRAM 40 MG TABLET PO SCH (09:52)
[2020-02-28] MEDS: TAMSULOSIN 0.4 MG CAPSULE PO SCH ×2 (09:52→20:43)
[2020-02-28] MEDS: NEBIVOLOL 5 MG TABLET PO SCH (09:53)
[2020-02-28] MEDS: MORPHINE ER 15 MG TABLET PO SCH ×2 (09:53→20:43)
[2020-02-28] MEDS: PANTOPRAZOLE 40 MG TABLET PO SCH (09:53)
[2020-02-28] MEDS: ENOXAPARIN 40 MG/0.4 ML SYRINGE SUBCUT SCH (09:58)
[2020-02-28] MEDS: fentaNYL 50 MCG/HR PATCH TRANSDERM SCH (10:28)
[2020-02-28] MEDS ORDERED: TUBERCULIN SKIN TEST 0.1 ML SYRINGE INTRADERM ONE (10:34)
[2020-02-28] MEDS: POTASSIUM CHLORIDE 20 MEQ TABLET PO PRN ×3 (11:47→16:33)
[2020-02-28] MEDS: MORPHINE IR 15 MG TABLET PO PRN (16:34)
[2020-02-28 16:56] LABS: Basophils % 0.2 % (0.0-0.8); Eosinophils % 0.1 % (0.00-10.9); Hematocrit 36.4 VOL% (42.0-52.0); Hemoglobin 11.9 GM/DL (14.0-18.0); Immature Granulocytes % 1.1 %; Immature Granulocytes Absolute 0.12 #; Lymphocytes # 0.4 10*3/uL (1.4-4.0); Lymphocytes % 3.3 % (21.2-54.2); Mean Corpuscular HGB Conc 32.7 GM/DL (32-36); Mean Corpuscular Volume 90.8 FL (87-102); Mean Platelet Volume 10.2 FL (9.6-12.0); Monocytes % 2.4 % (1.7-12.7); Neutrophils % 92.9 % (38.7-73.9); Platelet Count 160 T/CUMM (130-400); Red Blood Count 4.01 MC/CUMM (3.8-5.5); Red Cell Distribution Width 14.9 % (9.3-17.3)
[2020-02-28 17:34] LABS: Lymphocytes 1 % (20-55); Segmented Neutrophils 99 % (50-85); Total Cells Counted 100
[2020-02-28 17:35] LABS: Platelet Estimate Adequate
[2020-02-28] MEDS ORDERED: MAGNESIUM SULF RIDER 2 GM in PREMIX 1 EACH IV ONE (17:42)
[2020-02-28] MEDS ORDERED: POTASSIUM CHLORIDE 20 MEQ/15 ML UDCUP PO ONE (17:42)
[2020-02-29] MEDS: MORPHINE IR 15 MG TABLET PO PRN (01:56)
[2020-02-29 05:03] LABS: ABG Base Excess 14.4 MMOL/L (-2.5-2.5); ABG HCO3 38.2 MMOL/L (20-26); ABG Oxygen Saturation 94.8 % (95-100); ABG PCO2 57.3 MM HG (35-48); ABG PH 7.461 (7.35-7.45); ABG PO2 73.4 MM HG (80-95); ABG TCO2 36.7 MMOL/L (23-27); Allen Test Positive
[2020-02-29 07:17] LABS: Basophils % 0.1 % (0.0-0.8); Eosinophils # 0.1 10*3/uL (0.0-0.87); Hematocrit 31.3 VOL% (42.0-52.0); Hemoglobin 10.4 GM/DL (14.0-18.0); Immature Granulocytes % 1.4 %; Immature Granulocytes Absolute 0.14 #; Lymphocytes # 0.8 10*3/uL (1.4-4.0); Lymphocytes % 7.4 % (21.2-54.2); Mean Corpuscular HGB Conc 33.2 GM/DL (32-36); Mean Corpuscular Volume 89.4 FL (87-102); Mean Platelet Volume 10.1 FL (9.6-12.0); Monocytes % 7.1 % (1.7-12.7); Platelet Count 137 T/CUMM (130-400); Red Cell Distribution Width 14.9 % (9.3-17.3); White Blood Count 10.2 T/CUMM (4-12)
[2020-02-29 08:03] LABS: Calcium 8.1 MG/DL (8.5-10.1); Osmolality,Calculated 265.4 MOS/KG (273-304)
[2020-02-29] MEDS: SODIUM CHLORIDE 0.9% 1,000 ML IV SCH ×4 (09:47→22:51)
[2020-02-29] MEDS: predniSONE 20 MG TABLET PO SCH (09:52)
[2020-02-29] MEDS: TAMSULOSIN 0.4 MG CAPSULE PO SCH ×2 (09:53→20:34)
[2020-02-29] MEDS: PANTOPRAZOLE 40 MG TABLET PO SCH (09:53)
[2020-02-29] MEDS: FLUCONAZOLE 100 MG TABLET PO SCH (09:53)
[2020-02-29] MEDS: NEBIVOLOL 5 MG TABLET PO SCH (09:53)
[2020-02-29] MEDS: ENOXAPARIN 40 MG/0.4 ML SYRINGE SUBCUT SCH (09:55)
[2020-02-29] MEDS: LORazepam 1 MG TABLET PO SCH ×3 (09:55→20:34)
[2020-02-29] MEDS: CITALOPRAM 40 MG TABLET PO SCH (09:55)
[2020-02-29] MEDS: MORPHINE ER 15 MG TABLET PO SCH ×2 (09:55→20:34)
[2020-03-01] MEDS: MORPHINE IR 15 MG TABLET PO PRN ×2 (03:40→14:43)
[2020-03-01] MEDS: SODIUM CHLORIDE 0.9% 1,000 ML IV SCH (06:28)
[2020-03-01 06:54] LABS: Calcium 8.4 MG/DL (8.5-10.1); Osmolality,Calculated 269.8 MOS/KG (273-304)
[2020-03-01] MEDS: CITALOPRAM 40 MG TABLET PO SCH (08:41)
[2020-03-01] MEDS: LORazepam 1 MG TABLET PO SCH ×3 (08:41→20:40)
[2020-03-01] MEDS: predniSONE 20 MG TABLET PO SCH (08:41)
[2020-03-01] MEDS: PANTOPRAZOLE 40 MG TABLET PO SCH (08:43)
[2020-03-01] MEDS: NEBIVOLOL 5 MG TABLET PO SCH (08:43)
[2020-03-01] MEDS: MORPHINE ER 15 MG TABLET PO SCH ×2 (08:43→20:42)
[2020-03-01] MEDS: TAMSULOSIN 0.4 MG CAPSULE PO SCH ×2 (08:43→20:40)
[2020-03-01] MEDS: FLUCONAZOLE 100 MG TABLET PO SCH (08:43)
[2020-03-01] MEDS: ENOXAPARIN 40 MG/0.4 ML SYRINGE SUBCUT SCH (08:44)
[2020-03-02 06:47] LABS: Calcium 8.4 MG/DL (8.5-10.1); Osmolality,Calculated 275.4 MOS/KG (273-304)
[2020-03-02] MEDS: MORPHINE IR 15 MG TABLET PO PRN (07:56)
[2020-03-02] MEDS: POTASSIUM CHLORIDE 20 MEQ TABLET PO PRN ×4 (07:56→19:34)
[2020-03-02] MEDS: LORazepam 1 MG TABLET PO SCH ×3 (09:31→21:27)
[2020-03-02] MEDS: TAMSULOSIN 0.4 MG CAPSULE PO SCH ×2 (09:32→21:27)
[2020-03-02] MEDS: MORPHINE ER 15 MG TABLET PO SCH ×2 (09:32→21:27)
[2020-03-02] MEDS: PANTOPRAZOLE 40 MG TABLET PO SCH (09:33)
[2020-03-02] MEDS: NEBIVOLOL 5 MG TABLET PO SCH (09:33)
[2020-03-02] MEDS: CITALOPRAM 40 MG TABLET PO SCH (09:33)
[2020-03-02] MEDS: FLUCONAZOLE 100 MG TABLET PO SCH (09:34)
[2020-03-02] MEDS: ENOXAPARIN 40 MG/0.4 ML SYRINGE SUBCUT SCH (09:35)
[2020-03-02] MEDS: predniSONE 20 MG TABLET PO SCH (09:37)
[2020-03-02] MEDS: fentaNYL 50 MCG/HR PATCH TRANSDERM SCH (10:15)
[2020-03-02] MEDS: busPIRone 5 MG TABLET PO SCH (13:16)
[2020-03-03 01:46] LABS: Basophils % 0.1 % (0.0-0.8); Eosinophils % 0.2 % (0.00-10.9); Hematocrit 32.6 VOL% (42.0-52.0); Hemoglobin 10.5 GM/DL (14.0-18.0); Immature Granulocytes % 1.4 %; Immature Granulocytes Absolute 0.17 #; Lymphocytes # 0.4 10*3/uL (1.4-4.0); Lymphocytes % 3.5 % (21.2-54.2); Mean Corpuscular HGB Conc 32.2 GM/DL (32-36); Mean Corpuscular Volume 93.4 FL (87-102); Mean Platelet Volume 9.7 FL (9.6-12.0); Monocytes % 7.9 % (1.7-12.7); Neutrophils % 86.9 % (38.7-73.9); Platelet Count 172 T/CUMM (130-400); Red Blood Count 3.49 MC/CUMM (3.8-5.5); Red Cell Distribution Width 15.4 % (9.3-17.3); White Blood Count 12.6 T/CUMM (4-12)
[2020-03-03 02:05] LABS: Calcium 8.6 MG/DL (8.5-10.1); Osmolality,Calculated 267.1 MOS/KG (273-304)
[2020-03-03 04:08] LABS: Hypochromasia 1+; Lymphocytes 3 % (20-55); Microcytosis 1+; Platelet Estimate Adequate; Segmented Neutrophils 89 % (50-85); Total Cells Counted 100
[2020-03-03] MEDS: LORazepam 1 MG TABLET PO SCH ×3 (08:07→22:42)
[2020-03-03] MEDS: MORPHINE ER 15 MG TABLET PO SCH ×3 (08:07→22:42)
[2020-03-03] MEDS ORDERED: DILTIAZEM 50 MG/10 ML VIAL IV ONE (08:31)
[2020-03-03] MEDS ORDERED: DILTIAZEM 30 MG TABLET PO ONE (08:40)
[2020-03-03] MEDS ORDERED: DILTIAZEM 25 MG/5 ML VIAL IV ONE (08:41)
[2020-03-03] MEDS ORDERED: dilTIAZem Drip 125 MG/125 ML PREMIX IV SCH (09:00)
[2020-03-03 09:44] LABS: Bilirubin,Urine Negative (Negative); Blood, Urine Negative (Negative); Glucose,Urine (UA) Negative (Negative); Ketones,Urine Negative (Negative); Mucus,Urine Occasional /LPF (Occasional); Nitrite,Urine Negative (Negative); Protein,Urine Negative; RBC,Urine <1 /HPF (0-4); Urine Appearance CLEAR (Clear); Urine Color Straw (Yellow); Urine Specific Gravity 1.009 (1.001-1.035); Urine Urobilinogen < 2.0 EU/DL (0.2-1.0); WBC,Urine <1 /HPF (0-6)
[2020-03-03] MEDS: FLUCONAZOLE 100 MG TABLET PO SCH (09:52)
[2020-03-03] MEDS: TAMSULOSIN 0.4 MG CAPSULE PO SCH ×2 (09:52→22:12)
[2020-03-03] MEDS: NEBIVOLOL 5 MG TABLET PO SCH (09:52)
[2020-03-03] MEDS: CITALOPRAM 40 MG TABLET PO SCH (09:52)
[2020-03-03] MEDS: predniSONE 20 MG TABLET PO SCH (09:53)
[2020-03-03] MEDS: PANTOPRAZOLE 40 MG TABLET PO SCH (09:53)
[2020-03-03] MEDS: ENOXAPARIN 40 MG/0.4 ML SYRINGE SUBCUT SCH (09:56)
[2020-03-03] MEDS: busPIRone 5 MG TABLET PO SCH (09:56)
[2020-03-03] MEDS: DESITIN 4OZ/NYSTATIN 15 GRAM MIXTURE PASTE TOP SCH ×2 (10:02→22:12)
[2020-03-03] MEDS: ACETAMINOPHEN 325 MG TABLET PO PRN (10:24)
[2020-03-03 12:03] LABS: Basophils % 0.1 % (0.0-0.8); Eosinophils # 0.1 10*3/uL (0.0-0.87); Eosinophils % 0.3 % (0.00-10.9); Hematocrit 34.2 VOL% (42.0-52.0); Hemoglobin 11.3 GM/DL (14.0-18.0); Immature Granulocytes % 1.7 %; Lymphocytes # 0.4 10*3/uL (1.4-4.0); Lymphocytes % 2.2 % (21.2-54.2); Mean Corpuscular Volume 90.5 FL (87-102); Mean Platelet Volume 9.5 FL (9.6-12.0); Monocytes % 7.7 % (1.7-12.7); Platelet Count 222 T/CUMM (130-400); Red Blood Count 3.78 MC/CUMM (3.8-5.5); White Blood Count 17.8 T/CUMM (4-12)
[2020-03-03 12:25] LABS: Band Neutrophils 10 % (0-10); Eosinophils 2 % (0-10); Lymphocytes 2 % (20-55); Metamyelocytes 2 %; Platelet Estimate Normal; Segmented Neutrophils 76 % (50-85); Total Cells Counted 100
[2020-03-03 12:26] LABS: Anisocytosis 1+; Hypochromasia Slight; Macrocytosis Slight
[2020-03-03 12:33] LABS: Calcium 8.7 MG/DL (8.5-10.1); Osmolality,Calculated 260.5 MOS/KG (273-304)
[2020-03-03] MEDS: MAGNESIUM SULF RIDER 2 GM in PREMIX 1 EACH IV PRN (13:39)
[2020-03-03] MEDS: AMIODARONE INJ 450 MG in DEXTROSE 5% 241 ML IV SCH (15:04)
[2020-03-03] MEDS: MORPHINE IR 15 MG TABLET PO PRN (15:07)
[2020-03-03] MEDS: MEROPENEM 500 MG in SODIUM CHLORIDE 0.9% 100 ML IV SCH ×2 (15:57→22:42)
[2020-03-03] MEDS: VANCOMYCIN INJ 1,250 MG in SODIUM CHLORIDE 0.9% 250 ML IV SCH (18:24)
[2020-03-04 05:05] LABS: Osmolality,Calculated 262.5 MOS/KG (273-304)
[2020-03-04] MEDS: MEROPENEM 500 MG in SODIUM CHLORIDE 0.9% 100 ML IV SCH ×4 (05:09→21:59)
[2020-03-04] MEDS: VANCOMYCIN INJ 1,250 MG in SODIUM CHLORIDE 0.9% 250 ML IV SCH ×2 (05:12→19:04)
[2020-03-04] MEDS: AMIODARONE INJ 450 MG in DEXTROSE 5% 241 ML IV SCH ×2 (06:04→06:38)
[2020-03-04] MEDS: MORPHINE IR 15 MG TABLET PO PRN ×2 (07:50→16:57)
[2020-03-04] MEDS: FUROSEMIDE 40 MG/4 ML VIAL IV SCH ×2 (08:28→15:22)
[2020-03-04] MEDS: ENOXAPARIN 40 MG/0.4 ML SYRINGE SUBCUT SCH (08:28)
[2020-03-04] MEDS: LORazepam 1 MG TABLET PO SCH ×3 (08:28→20:50)
[2020-03-04] MEDS: CITALOPRAM 40 MG TABLET PO SCH (08:28)
[2020-03-04] MEDS: NEBIVOLOL 5 MG TABLET PO SCH (08:29)
[2020-03-04] MEDS: predniSONE 20 MG TABLET PO SCH (08:29)
[2020-03-04] MEDS: busPIRone 5 MG TABLET PO SCH (08:29)
[2020-03-04] MEDS: PANTOPRAZOLE 40 MG TABLET PO SCH (08:29)
[2020-03-04] MEDS: TAMSULOSIN 0.4 MG CAPSULE PO SCH ×2 (08:30→20:51)
[2020-03-04] MEDS: MORPHINE ER 15 MG TABLET PO SCH ×2 (08:30→20:51)
[2020-03-04] MEDS: DESITIN 4OZ/NYSTATIN 15 GRAM MIXTURE PASTE TOP SCH ×2 (08:31→20:52)
[2020-03-04] MEDS: AMIODARONE 200 MG TABLET PO SCH ×2 (08:32→20:51)
[2020-03-04 16:57] LABS: Ferritin 1317.8 ng/ml (26-388)
[2020-03-04 17:00] LABS: INR 1.1; PT Patient Result 11.4 SECS (9.8-11.9)
[2020-03-04] MEDS: ASCORBIC ACID 500 MG TABLET PO SCH (20:50)
[2020-03-04] MEDS ORDERED: SODIUM CHLORIDE 0.9% 500 ML IV ONE (22:08)
[2020-03-05] MEDS: MEROPENEM 500 MG in SODIUM CHLORIDE 0.9% 100 ML IV SCH ×4 (03:54→22:25)
[2020-03-05 05:35] LABS: Calcium 8.4 MG/DL (8.5-10.1); Osmolality,Calculated 263.5 MOS/KG (273-304)
[2020-03-05] MEDS: VANCOMYCIN INJ 1,250 MG in SODIUM CHLORIDE 0.9% 250 ML IV SCH ×2 (05:44→18:45)
[2020-03-05] MEDS: MORPHINE IR 15 MG TABLET PO PRN ×3 (06:30→16:00)
[2020-03-05] MEDS: POTASSIUM CHLORIDE RIDER 10 MEQ in PREMIX 1 EACH IV PRN ×3 (07:58→17:32)
[2020-03-05] MEDS: ZINC GLUCONATE 50 MG TABLET PO SCH (08:50)
[2020-03-05] MEDS: predniSONE 20 MG TABLET PO SCH (08:50)
[2020-03-05] MEDS: CITALOPRAM 40 MG TABLET PO SCH (08:50)
[2020-03-05] MEDS: NEBIVOLOL 5 MG TABLET PO SCH (08:50)
[2020-03-05] MEDS: TAMSULOSIN 0.4 MG CAPSULE PO SCH ×2 (08:51→21:24)
[2020-03-05] MEDS: PANTOPRAZOLE 40 MG TABLET PO SCH (08:51)
[2020-03-05] MEDS: CHOLECALCIFEROL 1,000 UNIT TABLET PO SCH (08:51)
[2020-03-05] MEDS: LORazepam 1 MG TABLET PO SCH ×3 (08:51→21:23)
[2020-03-05] MEDS: ASCORBIC ACID 500 MG TABLET PO SCH ×2 (08:51→21:24)
[2020-03-05] MEDS: ENOXAPARIN 40 MG/0.4 ML SYRINGE SUBCUT SCH ×2 (08:52→21:24)
[2020-03-05] MEDS: busPIRone 5 MG TABLET PO SCH (08:52)
[2020-03-05] MEDS: AMIODARONE 200 MG TABLET PO SCH ×2 (08:52→21:24)
[2020-03-05] MEDS: MORPHINE ER 15 MG TABLET PO SCH ×2 (08:53→21:24)
[2020-03-05] MEDS: fentaNYL 50 MCG/HR PATCH TRANSDERM SCH (08:53)
[2020-03-05] MEDS: FUROSEMIDE 40 MG/4 ML VIAL IV SCH ×2 (09:05)
[2020-03-05] MEDS: DESITIN 4OZ/NYSTATIN 15 GRAM MIXTURE PASTE TOP SCH ×2 (09:05→21:25)
[2020-03-05] MEDS: MAGNESIUM SULF RIDER 2 GM in PREMIX 1 EACH IV PRN (12:27)
[2020-03-05 13:57] LABS: Bilirubin,Direct 0.32 MG/DL (0.0-0.20); Bilirubin,Indirect 0.4 MG/DL (0.0-1.0); Bilirubin,Total 0.7 MG/DL (0.2-1.0); Total Protein 5.2 G/DL (6.4-8.3)
[2020-03-05] MEDS ORDERED: SODIUM CHLORIDE 0.9% 1,000 ML IV PRN (13:57)
[2020-03-05] MEDS ORDERED: REMDESIVIR 200 MG in SODIUM CHLORIDE 0.9% 210 ML IV ONE (14:30)
[2020-03-05] MEDS ORDERED: SODIUM CHLORIDE 0.9% 500 ML IV ONE (16:00)
[2020-03-06] MEDS: MEROPENEM 500 MG in SODIUM CHLORIDE 0.9% 100 ML IV SCH ×4 (03:29→22:20)
[2020-03-06] MEDS: MORPHINE IR 15 MG TABLET PO PRN (04:00)
[2020-03-06 04:53] LABS: Eosinophils % 0.1 % (0.00-10.9); Hematocrit 34.1 VOL% (42.0-52.0); Hemoglobin 10.4 GM/DL (14.0-18.0); Immature Granulocytes % 0.4 %; Immature Granulocytes Absolute 0.03 #; Lymphocytes # 0.3 10*3/uL (1.4-4.0); Lymphocytes % 3.4 % (21.2-54.2); Mean Corpuscular HGB Conc 30.5 GM/DL (32-36); Mean Corpuscular Volume 95.5 FL (87-102); Mean Platelet Volume 9.3 FL (9.6-12.0); Neutrophils % 93.1 % (38.7-73.9); Platelet Count 133 T/CUMM (130-400); Red Blood Count 3.57 MC/CUMM (3.8-5.5); Red Cell Distribution Width 15.2 % (9.3-17.3)
[2020-03-06 05:04] LABS: ABG Base Excess 12.9 MMOL/L (-2.5-2.5); ABG HCO3 38.5 MMOL/L (20-26); ABG Oxygen Saturation 88.7 % (95-100); ABG PCO2 54.7 MM HG (35-48); ABG PH 7.465 (7.35-7.45); ABG PO2 57.5 MM HG (80-95); ABG TCO2 40.1 MMOL/L (23-27)
[2020-03-06 05:21] LABS: Hypochromasia 1+; Lymphocytes 4 % (20-55); Platelet Estimate Normal; Segmented Neutrophils 93 % (50-85); Total Cells Counted 100
[2020-03-06 05:22] LABS: Microcytosis Slight
[2020-03-06 05:43] LABS: Calcium 8.6 MG/DL (8.5-10.1); Osmolality,Calculated 260.8 MOS/KG (273-304)
[2020-03-06] MEDS ORDERED: LORazepam 2 MG/1 ML VIAL IV PRN (08:46)
[2020-03-06] MEDS: ASCORBIC ACID 500 MG TABLET PO SCH ×2 (09:46→22:18)
[2020-03-06] MEDS: CITALOPRAM 40 MG TABLET PO SCH (09:46)
[2020-03-06] MEDS: TAMSULOSIN 0.4 MG CAPSULE PO SCH ×2 (09:47→22:18)
[2020-03-06] MEDS: LORazepam 1 MG TABLET PO SCH ×3 (09:47→22:18)
[2020-03-06] MEDS: predniSONE 20 MG TABLET PO SCH (09:47)
[2020-03-06] MEDS: busPIRone 5 MG TABLET PO SCH (09:47)
[2020-03-06] MEDS: NEBIVOLOL 5 MG TABLET PO SCH (09:48)
[2020-03-06] MEDS: PANTOPRAZOLE 40 MG TABLET PO SCH (09:48)
[2020-03-06] MEDS: ZINC GLUCONATE 50 MG TABLET PO SCH (09:48)
[2020-03-06] MEDS: AMIODARONE 200 MG TABLET PO SCH ×2 (09:48→22:19)
[2020-03-06] MEDS: MORPHINE ER 15 MG TABLET PO SCH ×2 (09:48→22:18)
[2020-03-06] MEDS: CHOLECALCIFEROL 1,000 UNIT TABLET PO SCH (09:49)
[2020-03-06] MEDS: ENOXAPARIN 40 MG/0.4 ML SYRINGE SUBCUT SCH ×2 (09:49→22:19)
[2020-03-06] MEDS: FUROSEMIDE 40 MG/4 ML VIAL IV SCH (09:50)
[2020-03-06] MEDS: DESITIN 4OZ/NYSTATIN 15 GRAM MIXTURE PASTE TOP SCH ×2 (09:50→22:20)
[2020-03-06] MEDS: REMDESIVIR 100 MG in SODIUM CHLORIDE 0.9% 100 ML IV SCH (10:20)
[2020-03-06] MEDS: methylPREDNISolone SOD SUC 40 MG/1 ML VIAL IV SCH ×2 (10:44→18:35)
[2020-03-06] MEDS ORDERED: NOREPINEPHRINE 8 MG in SODIUM CHLORIDE 0.9% 242 ML IV PRN (18:22)
[2020-03-06] MEDS: VANCOMYCIN INJ 1,250 MG in SODIUM CHLORIDE 0.9% 250 ML IV SCH (18:59)
[2020-03-06 21:02] VITALS: BP 74/48
[2020-03-07] MEDS: methylPREDNISolone SOD SUC 40 MG/1 ML VIAL IV SCH ×3 (01:59→18:18)
[2020-03-07] MEDS: MEROPENEM 500 MG in SODIUM CHLORIDE 0.9% 100 ML IV SCH ×4 (03:26→21:52)
[2020-03-07 03:44] LABS: ABG Base Excess 14.3 MMOL/L (-2.5-2.5); ABG Oxygen Saturation 86.4 % (95-100); ABG PCO2 60.9 MM HG (35-48); ABG PH 7.439 (7.35-7.45); ABG PO2 55.8 MM HG (80-95); ABG TCO2 37.4 MMOL/L (23-27)
[2020-03-07 04:24] LABS: Basophils % 0.1 % (0.0-0.8); Hematocrit 32.2 VOL% (42.0-52.0); Hemoglobin 10.4 GM/DL (14.0-18.0); Immature Granulocytes % 0.3 %; Immature Granulocytes Absolute 0.02 #; Lymphocytes # 0.2 10*3/uL (1.4-4.0); Lymphocytes % 2.1 % (21.2-54.2); Mean Corpuscular HGB Conc 32.3 GM/DL (32-36); Mean Corpuscular Volume 90.7 FL (87-102); Mean Platelet Volume 9.4 FL (9.6-12.0); Monocytes % 1.7 % (1.7-12.7); Neutrophils % 95.8 % (38.7-73.9); Platelet Count 150 T/CUMM (130-400); Red Blood Count 3.55 MC/CUMM (3.8-5.5); Red Cell Distribution Width 15.3 % (9.3-17.3); White Blood Count 7.1 T/CUMM (4-12)
[2020-03-07] MEDS: MORPHINE IR 15 MG TABLET PO PRN ×3 (04:34→14:49)
[2020-03-07 04:50] LABS: Calcium 8.7 MG/DL (8.5-10.1); Osmolality,Calculated 268.5 MOS/KG (273-304)
[2020-03-07 05:06] LABS: Band Neutrophils 1 % (0-10); Lymphocytes 2 % (20-55); Segmented Neutrophils 97 % (50-85); Total Cells Counted 100
[2020-03-07 05:07] LABS: Hypochromasia 2+; Platelet Estimate Normal
[2020-03-07] MEDS: PANTOPRAZOLE 40 MG TABLET PO SCH (08:53)
[2020-03-07] MEDS: ZINC GLUCONATE 50 MG TABLET PO SCH (08:53)
[2020-03-07] MEDS: CHOLECALCIFEROL 1,000 UNIT TABLET PO SCH (08:53)
[2020-03-07] MEDS: CITALOPRAM 40 MG TABLET PO SCH (08:53)
[2020-03-07] MEDS: guaiFENesin/DM ER 600-30 MG TABLET PO PRN (08:53)
[2020-03-07] MEDS: busPIRone 5 MG TABLET PO SCH (08:54)
[2020-03-07] MEDS: ASCORBIC ACID 500 MG TABLET PO SCH ×2 (08:54→20:32)
[2020-03-07] MEDS: MORPHINE ER 15 MG TABLET PO SCH ×2 (08:54→20:33)
[2020-03-07] MEDS: LORazepam 1 MG TABLET PO SCH ×3 (08:54→20:31)
[2020-03-07] MEDS ORDERED: NEBIVOLOL 5 MG TABLET PO SCH (09:00)
[2020-03-07] MEDS: TAMSULOSIN 0.4 MG CAPSULE PO SCH ×2 (09:24→20:32)
[2020-03-07] MEDS: ENOXAPARIN 40 MG/0.4 ML SYRINGE SUBCUT SCH ×2 (09:25→21:25)
[2020-03-07] MEDS: DESITIN 4OZ/NYSTATIN 15 GRAM MIXTURE PASTE TOP SCH ×2 (09:25→20:32)
[2020-03-07] MEDS: FUROSEMIDE 40 MG/4 ML VIAL IV SCH (09:36)
[2020-03-07] MEDS: REMDESIVIR 100 MG in SODIUM CHLORIDE 0.9% 100 ML IV SCH (09:37)
[2020-03-07] MEDS: AMIODARONE 200 MG TABLET PO SCH ×2 (11:03→20:31)
[2020-03-07] MEDS ORDERED: LORazepam 2 MG/1 ML VIAL IV PRN (11:37)
[2020-03-07] MEDS ORDERED: HALOPERIDOL 5 MG/ML AMP IM ONE (15:00)
[2020-03-07] MEDS ORDERED: HALOPERIDOL 5 MG/ML AMP ONE (15:08)
[2020-03-07] MEDS ORDERED: MORPHINE 4 MG/1 ML VIAL IV ONE (15:25)
[2020-03-07] MEDS ORDERED: LORazepam 2 MG/1 ML VIAL ONE ×2 (15:35→17:00)
[2020-03-07] MEDS ORDERED: DIGOXIN 0.5 MG/2 ML AMP ONE (15:37)
[2020-03-07] MEDS ORDERED: DIGOXIN 0.5 MG/2 ML AMP IV ONE ×2 (15:38→16:40)
[2020-03-07] MEDS ORDERED: LORazepam 2 MG/1 ML VIAL IV ONE (15:38)
[2020-03-07] MEDS: MORPHINE 4 MG/1 ML VIAL IV PRN ×3 (17:05→23:30)
[2020-03-07] MEDS: LORazepam 2 MG/1 ML VIAL IV PRN ×3 (17:05→23:31)
[2020-03-07] MEDS: HALOPERIDOL 5 MG/ML AMP IM PRN (17:05)
[2020-03-07] MEDS: DEXMEDETOMIDINE 200 MCG in SODIUM CHLORIDE 0.9% 48 ML IV PRN ×2 (17:10→21:20)
[2020-03-07] MEDS: VANCOMYCIN INJ 1,250 MG in SODIUM CHLORIDE 0.9% 250 ML IV SCH (18:19)
[2020-03-07] MEDS ORDERED: DEXMEDETOMIDINE 400 MCG in SODIUM CHLORIDE 0.9% 96 ML IV PRN (18:22)
[2020-03-08] MEDS: HALOPERIDOL 5 MG/ML AMP IM PRN (00:06)
[2020-03-08] MEDS ORDERED: LORazepam 2 MG/1 ML VIAL IV PRN (00:15)
[2020-03-08] MEDS ORDERED: MORPHINE 4 MG/1 ML VIAL IV ONE (00:28)
== END 2020-03-08 00:53 | disposition expired | DRG 205 ==
LOC: N.ED 11:21 → N.EDINP 11:21 → N.3E 17:21 → SUATTDRO 02-20 10:58 → N.ICU 03-03 10:11 → N.CC 03-04 17:10
PROVIDERS: ADMIT Internal Medicine; ATTEND Internal Medicine